=== PATIENT | male | born 1940 | race Caucasian/White ===

== ENCOUNTER 2017-04-29 19:09 | Inpatient (IN) ==
[2017-04-29] MEDS ORDERED: LOVENOX SUBQ SCH (19:42)
[2017-04-29] MEDS ORDERED: ASPIRIN PO STA (19:42)
[2017-04-29] MEDS ORDERED: TYLENOL PO PRN (19:42)
[2017-04-29 20:44] LABS: MANUAL DIFF NEEDED? NO
[2017-04-29 20:48] LABS: BASO% 0.4 % (0.0-0.8); EOS# 0.05 X1000 (0.0-0.7); EOS% 0.6 % (0.0-10.0); HEMATOCRIT 42.5 % (42.0-52.0); HEMOGLOBIN 14.1 g/dL (14.0-18.0); LYMPH# 1.71 X1000 (1.2-3.4); LYMPH% 21.2 % (20.5-51.1); MCH 29.5 PG (27-31); MCHC 33.2 g/dL (33-37); MCV 88.9 FL (81-99); MONO# 1.01 X1000 (0.11-0.59); MONO% 12.5 % (1.7-9.3); MPV 9.3 FL (7.4-10.4); NEUT% 65.3 % (42.2-75.2); PLT 243 X1000 (130-400); RBC 4.78 XMIL (4.7-6.1)
[2017-04-29 20:56] LABS: INR 1.06; PROTIME 11.2 Seconds (9.2-11.7); PTT 28.5 Seconds (22.0-36.0)
[2017-04-29 21:02] LABS: CALCIUM 9.3 mg/dL (8.8-10.2); TOTAL BILIRUBIN 0.53 mg/dL (0.20-1.00); TOTAL PROTEIN 6.8 g/dL (6.3-8.3)
[2017-04-29] MEDS ORDERED: CLARITIN PO PRN (21:21)
[2017-04-29] MEDS ORDERED: MUCINEX DM PO PRN (21:25)
[2017-04-29] MEDS ORDERED: PLENDIL PO SCH (21:30)
[2017-04-29] MEDS: NITROGLYCERIN TOP SCH (21:35)
[2017-04-29] MEDS ORDERED: LOVENOX ONE ×2 (22:04)
[2017-04-29] MEDS: LOPRESSOR PO SCH (22:11)
--- NOTE | 2017-04-29 23:10 | HISTORY AND PHYSICAL ---
PRIMARY CARE PHYSICIAN: Dr. Carlos Mcmanus. CHIEF COMPLAINT: Chest pain. HISTORY OF PRESENT ILLNESS: A 76-year-old white male with a very complicated past medical history presents for evaluation of above-mentioned symptoms. Current history of present illness began at approximately 5 a.m. this morning. Patient states he awoke abruptly with shortness of breath. The patient states he immediately withdrew his CPAP. He then noted significant bilateral shoulder pain and anterior chest pain. He described the pain as a soreness. The patient attempted to lie back down but again developed considerable pain. He arose and prepared himself for the morning taking his grandchildren to school. Upon returning home, he again developed pain with lying supine. Because of his persistent pain as well as his multiple medical problems, his insisted that he come to the office. Upon arrival, patient states he had persisted pain approximately 2/10 in intensity. His EKG demonstrated a slight change in the ST segments in the inferior leads. Because of the slight change and his significant risk factors, patient will be admitted to the hospital for full evaluation and management of chest discomfort. Unfortunately, patient is largely inactive during the day. He denies significant shortness of breath or dyspnea on exertion but patient's notes his activity level is quite low. He denies palpitations, radiating pain, nausea, vomiting or change in lower extremity edema. PAST MEDICAL HISTORY: 1. Allergic rhinitis. 2. Anxiety/depression. 3. Chronic obstructive pulmonary disease. 4. Metabolic syndrome. 5. Benign prostatic hypertrophy. 6. Hypertriglyceridemia. 7. Nonalcoholic fatty liver disease. 8. Gout. 9. Bilateral hearing loss. 10. Abnormal skin examination with a history of melanoma x3. 11. Hyperlipidemia. 12. Hypertension. 13. Hypokalemia. 14. Impaired fasting glucose. 15. Low HDL. 16. History of adenocarcinoma of the right lower lobe of the lung. 17. Nephrolithiasis. 18. Osteoarthritis. 19. Obesity. 20. History of a duodenal ulcer in 1982 and 2008. 21. Hypogonadism. 22. Family history of ischemic heart disease. 23. Elevated PSA with negative prostate biopsy in 2008. 24. 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 25. History of thyroid cancer status post surgical resection and subsequent radioactive iodine ablation. CURRENT MEDICATIONS: 1. Allopurinol 200 mg daily. 2. Aspirin 81 mg daily. 3. Wellbutrin XL 300 mg daily. 4. Claritin 10 mg daily as needed. 5. Crestor 40 mg at bedtime. 6. Dulera 200/5 two puffs twice daily. 7. Lexapro 20 mg daily. 8. Felodipine 5 mg at bedtime. 9. Finasteride 5 mg daily. 10. Potassium chloride 10 mEq 3 times daily. 11. Levothyroxine 137 mcg 2 tablets daily. 12. Meloxicam 15 mg daily as needed. 13. Metoprolol tartrate 25 mg twice daily. 14. Mucinex DM 1 tablet every 12 hours as needed. 15. Niacin ER 500 mg daily. 16. Triamterene/hydrochlorothiazide 37.5/25 two tablets daily. 17. Valsartan 160 mg daily. ALLERGIES: patient answered no known drug allergies. SOCIAL HISTORY: Patient is a former smoker having smoked 2 packs per day for 30 years. He stopped in 2000. He has approximately 2 drinks per week. He denies illicit drug use. 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 He enjoys gardening and reading. He exercises intermittently. FAMILY HISTORY: Patient's father passed at age 46 secondary to complications of a cerebral hemorrhage. Patient's mother passed at age 68 secondary to complications of an acute myocardial infarction. REVIEW OF SYSTEMS: A 12 point review of systems was performed. Pertinent positives and negatives noted in history present illness. PHYSICAL EXAMINATION: VITAL SIGNS: Temperature 98.4 degrees, heart rate 69, respirations 16, blood pressure is 127/77. GENERAL: Well nourished, well developed, no acute distress. HEENT: Normocephalic, atraumatic. Pupils equal, round, react to light. Extraocular muscles intact. Sclerae anicteric. [place] conjunctivae. Oral and nasopharynx clear without exudate. NECK: Supple. No lymphadenopathy. No thyromegaly. No bruits auscultated. CARDIOVASCULAR: Regular rate and rhythm. No significant murmurs, rubs, or gallops. PULMONARY: Clear to auscultation bilaterally. ABDOMEN: Soft and nontender, nondistended. Positive bowel sounds. EXTREMITIES: Moves all extremities well. No significant clubbing or cyanosis. Patient has 1+ lower extremity edema bilaterally. NEUROLOGIC: Cranial nerves 2 through 12 grossly intact. Motor and sensory grossly intact. PSYCHOLOGIC: Examination is appropriate. LABORATORY DATA: White blood cell count 8.08, hemoglobin 14.1, hematocrit 42.5, platelet count 243,000. PT 11.2, INR is 1.06, PTT is 28.5, sodium 137, potassium 4.0, chloride 100, bicarb 25, BUN 22, creatinine 1.2, glucose 111, calcium 9.3, total bilirubin 0.53, total protein 6.8, albumin 4.0, alkaline phosphatase 55, AST 19, ALT 23, CK total 59, troponin less than 0.010. TSH is 0.05. ASSESSMENT AND PLAN: A 76-year-old white male with a very complicated past medical history as noted presents for evaluation of chest discomfort. His symptoms are atypical. Unfortunately however, with the patient's significant risk factors I am very concerned. EKG demonstrates a modest change in his ST segments in the inferior leads, possibly related to repolarization. Patient will be admitted to the hospital for full evaluation and management of chest discomfort. 1. Admit to General Medicine. 2. Chest pain/unstable angina-as above, patient's symptoms are atypical but very concerning in a high-risk patient. We will monitor patient on telemetry overnight. We will schedule an echocardiogram in the morning. We will follow serial cardiac enzymes. Will start an aspirin. We will continue metoprolol therapy. I have discussed case with Dr. Flynn. He will be consulted in the a.m. We will determine if left heart catheterization versus stress testing is appropriate in the morning. 3. Hypertension-patient has longstanding disease. We will continue his home regimen. 4. Anxiety/depression-we will continue patient on his home medications. 5. Hyperlipidemia-we will continue Crestor therapy. 6. Low HDL-we will remain aware. This is an additional risk factor for underlying heart disease. 7. History of adenocarcinoma of the lung and thyroid cancer-we will remain aware. 8. Fluid, electrolytes, nutrition. Will monitor electrolytes. Saline lock IV. Cardiac prudent diet. 9. Prophylaxis. Patient will be placed on subcu Lovenox. cc: Carlos Mcmanus MD
[2017-04-30] MEDS: NITROGLYCERIN TOP SCH ×3 (03:01→16:14)
--- NOTE | 2017-04-30 06:52 | EKG Report ---
Test Performed on : 04/30/2017 06:33:48 AM Test Reason : Chest pain Blood Pressure : / mmHG Vent. Rate : 059 BPM Atrial Rate : 059 BPM P-R Int : 278 ms QRS Dur : 108 ms QT Int : 464 ms P-R-T Axes : 115 -17 068 degrees QTc Int : 459 ms Sinus bradycardia. with 1st degree AV block. Otherwise normal ECG When compared with ECG of 23-JUL-2011 11:15, QRS axis change inferior III and AVF ST less depressed in aVL Clinical Correlation advised Confirmed by Kevin Flynn DO ([id number]) on 04/30/2017 6:18:12 PM
[2017-04-30] MEDS ORDERED: SYNTHROID PO SCH (07:00)
[2017-04-30] MEDS ORDERED: DULERA 200 MCG/5 MCG INHALER INH SCH (07:30)
--- NOTE | 2017-04-30 08:37 | CONSULTATION ---
DATE OF CONSULTATION: 04/30/2017 INDICATIONS: Chest pain. HISTORY OF PRESENT ILLNESS: Mr. Melendez is a 76-year-old white male with a history of hypertension, hyperlipidemia, and COPD. He presented to Dr. Mcmanus' office yesterday with complaints of chest discomfort. They apparently woke him from sleep around 5 a.m. This was a relatively abrupt pain that he described as a soreness type discomfort in the upper chest and radiating to his bilateral shoulders. This persisted quite a bit throughout the day yesterday, such that any sort of activity like walking around or lying back aggravated the discomfort. If he laid relatively still there was minimal pain but it seemed like the pain was persistent throughout the day. He denied any nausea, vomiting, or shortness of breath associated with this and did not have any diaphoresis. He has no known cardiac history up until this point. He had myocardial perfusion imaging performed a couple of years ago which appeared to be a low risk study at that time. PAST MEDICAL HISTORY: 1. Significant for COPD with a previous long history of tobacco use. 2. History of lung cancer status post resection of the right lower lobe. 3. Metabolic syndrome. 4. BPH. 5. Hyperlipidemia. 6. Nonalcoholic fatty liver disease. 7. Gout. 8. Hypertension. 9. Nephrolithiasis. 10. Osteoarthritis. 11. Previous history of duodenal ulcers in 1982 and 2008. 12. History of thyroid cancer status post surgical resection along with subsequent radioactive iodine treatment. SOCIAL HISTORY: Former smoker; he stopped in 2000. Up until that point he smoked around 2 packs for 30 years. A couple of alcoholic drinks per week. No illicit drugs. FAMILY HISTORY: Father had an intracerebral hemorrhage. Mother at 68 secondary to complications related to an [place]. REVIEW OF SYSTEMS: A 10 system review of systems is negative except for those things mentioned in HPI. PHYSICAL EXAMINATION: Vital signs: Afebrile. Heart rates in the 50s to 60s. Blood pressure 106/69. General: No acute distress. HEENT: Oropharynx is moist. Normal dentition. Eye examination shows pink conjunctivae. White sclerae. Neck: Examination shows no obvious thyromegaly or thyroid tenderness. Cardiovascular: He is in a regular rate and rhythm. He has no murmurs. He has no S3. He has no lower extremity edema. No carotid bruits. Chest: Exam sounds relatively clear to auscultation bilaterally. He has no increased work of breathing. Abdomen: Soft, nontender, nondistended. No obvious organomegaly. Skin Exam: Warm and dry throughout without any rashes. Neurological: Moving all extremities well. Cranial nerves 2 through 12 are intact without any sensation deficits. Psychiatric: Alert, oriented, pleasant. Normal mood and affect. PERTINENT DATA: His EKG shows sinus bradycardia with a first-degree AV block. No ischemic changes. No evidence of acute infarct. He had a chest x-ray performed which shows evidence for cardiomegaly but otherwise unremarkable. His most recent laboratory data shows a white count of 8, hematocrit 42, platelet count 243,000. INR 1.0. Sodium 137, potassium 4, BUN 22, creatinine 1.2. Cardiac enzymes including CK and troponin were negative. TSH was low at 0.05. Liver enzymes were unremarkable. ASSESSMENT: 1. Patient with chest discomfort concerning for possible angina, although there are some atypical features. 2. Multiple risk factors for coronary disease. PLAN: We will proceed with cardiac catheterization. Risks, benefits, and alternatives explained to the patient. He agrees to proceed. He did have a myocardial perfusion scan performed in 2014 that demonstrated a defect in the inferior base that appeared to be relatively low risk with a normal EF. I agree with the echocardiogram the patient has ordered for today. He is already on aspirin and high-intensity statin therapy. We will assess his coronary anatomy via cardiac catheterization today. cc: MD Carlos Canas MD
[2017-04-30] MEDS ORDERED: LEXAPRO PO SCH (09:00)
[2017-04-30] MEDS ORDERED: PROSCAR PO SCH (09:00)
[2017-04-30] MEDS ORDERED: MAXZIDE 75/50 PO SCH (09:00)
[2017-04-30] MEDS ORDERED: DIOVAN PO SCH (09:00)
[2017-04-30] MEDS ORDERED: ZYLOPRIM PO SCH (09:00)
[2017-04-30] MEDS ORDERED: WELLBUTRIN XL PO SCH (09:00)
[2017-04-30] MEDS ORDERED: ASPIRIN PO SCH (09:00)
[2017-04-30] MEDS: KLOR-CON PO SCH ×3 (10:09→17:35)
[2017-04-30] MEDS: LOPRESSOR PO SCH (10:09)
[2017-04-30] MEDS ORDERED: HEPARIN 1000 UNITS/NS 2,000 UNIT/1,000 ML IV.SOLN ONE (13:09)
[2017-04-30] MEDS ORDERED: VERSED ONE (13:37)
[2017-04-30] MEDS ORDERED: CLAVE PUMP SET NO FILTER 12260 ONE (13:38)
[2017-04-30] MEDS ORDERED: DILAUDID ONE (13:38)
[2017-04-30] MEDS ORDERED: NS 1,000 ML ONE (13:38)
[2017-04-30] MEDS ORDERED: CLAVE TWINSITE 32 IN 11959 ONE (13:38)
--- NOTE | 2017-04-30 14:51 | CARDIAC CATH REPORT ---
PROCEDURE NAME: - INDICATION: Unstable angina. PROCEDURES PERFORMED: 1. Left heart catheterization. 2. Selective coronary angiography. 3. Left ventriculogram. PROCEDURE IN DETAIL: Mr. Melendez was brought to the catheterization laboratory in fasting state. Informed consent was obtained. Prepped in usual fashion. He was anesthetized over the right radial artery after Wei's test proved adequate. A 5-Romanian sheath was placed via true Seldinger technique. Radial cocktail was administered. Catheters were introduced. Hemodynamic measurements made of the ascending thoracic aorta. Coronary angiography was performed with multiple views using JL3.5 and JR4 diagnostic catheters. Left heart catheterization and left ventriculogram were performed using the JR4. At the conclusion of the procedure, all sheaths and catheters removed. TR band was left inflated at 12 mL of air. Good capillary refill. Good hemostasis. No apparent complications, 70 mL of IV contrast, 5 to 10 mL of blood loss. FINDINGS: 1. The left main has minor luminal irregularities noted. 2. Left anterior descending originates from the left main. The proximal vessel has roughly 40% diffuse disease. Mid-vessel, as well, has 40% disease with a distal vessel with minimal luminal irregularities. 3. Circumflex originates from the left main. There is somewhat minor luminal irregularities noted throughout the circumflex proper, as well as a very large obtuse marginal branch. 4. Right coronary originates from the right coronary cusp. It is a small nondominant vessel that bifurcates very quickly into 2 much smaller vessels, with minor luminal irregularities scattered throughout. 5. Left ventriculogram demonstrates an EF 60%, with normal wall motion. 6. Aortic blood pressure is 131/66. Left ventricle pressure is 130/3, with an LVEDP of 12. ASSESSMENT: Mr. Melendez is a 76-year-old male, with multiple risk factors for coronary disease, presenting with chest pain symptoms concerning for possible unstable angina. PLAN: He has no flow-limiting coronary lesions. He may return to the [facility] for usual post- procedure convalescence. He needs secondary risk factor modification for his nonobstructive coronary disease. I will plan on seeing him in the office in 1 month. cc: MD Carlos Canas MD
--- NOTE | 2017-04-30 15:58 | ECHO REPORT ---
ORDER DATE: 04/30/2017 INDICATION: Chest pain. FINDINGS: 1. Right atrium appears normal in size. 2. Mild tricuspid regurgitation. RV systolic pressure of 30. 3. Normal RV size and systolic function. 4. No significant pulmonic insufficiency. 5. Mild left atrial enlargement of 4.1 cm. 6. No mitral prolapse. Trace mitral regurgitation. 7. Normal LV size, end-diastolic dimension of 5 cm. Moderate left ventricular hypertrophy with a posterior and interventricular septal wall thickness of 1.5 and 1.4 cm respectively. Normal LV systolic function. Calculated EF of 62% with normal wall motion. 8. Aortic valve opens well. No evidence of stenosis. Mild insufficiency. 9. Aorta appears normal in visualized segments. 10. No pericardial effusion seen. cc: MD Carlos Canas MD
[2017-04-30 19:42] VITALS: BP 117/90
--- NOTE | 2017-04-30 20:14 | DISCHARGE SUMMARY ---
ADMISSION DATE: 04/29/2017 DISCHARGE DATE: 04/30/2017 ADMISSION DIAGNOSIS: Chest pain. DISCHARGE DIAGNOSES: 1. Chest pain, noncardiac. 2. Hypertension, present on arrival. 3. Depression/anxiety, present on arrival. 4. Hyperlipidemia, present on arrival. 5. Low HDL, present on arrival. CONSULTATIONS: Dru Flynn MD with Cardiology was consulted for further evaluation and management of chest discomfort. PROCEDURES: 1. An echocardiogram was performed on 04/30/2017 which revealed right atrium appears normal in size. Mild tricuspid regurgitation. RV systolic pressure of 30. Normal RV size and systolic function. No significant pulmonic insufficiency. Mild left atrial enlargement of 4.1 cm. No mitral prolapse. Trace mitral regurgitation. Normal LV size, end-diastolic dimension of 5 cm. Moderate left ventricular hypertrophy with a posterior and interventricular septal wall thickness of 1.5 and 1.4 cm respectively. Normal LV systolic function. Calculated ejection fraction of 62% with normal wall motion. Aortic valve opens well. No evidence of stenosis. Mild insufficiency. The aorta appears normal on visualized segments. No pericardial effusion seen. 2. Left heart catheterization was performed on 04/30/2017 which revealed left main has minor luminal irregularities. Left anterior descending originates from the left main. The proximal vessel has roughly 40% diffuse disease. Mid vessel as well has 40% disease with a distal vessel with minimal luminal irregularities. Circumflex originates from the left main. There is some moderate luminal irregularities noted throughout the circumflex proper, as well as a large obtuse marginal branch. Right coronary artery originates from the right coronary cusp. There is a small nondominant vessel that bifurcates very quickly into 2 much smaller vessels, with minor luminal irregularities scattered throughout. Left ventriculogram demonstrates an ejection fraction of 60% with normal wall motion. HISTORY AND PHYSICAL EXAMINATION: See admit note. PHYSICAL EXAMINATION PRIOR TO DISCHARGE: Vital Signs: Temperature 98.7 degrees, heart rate 58, respirations 16, blood pressure is 134/84. General: Well-nourished, well-developed, in no acute distress. Cardiovascular: Regular rate and rhythm. No significant murmurs, rubs, or gallops. Pulmonary: Clear to auscultation bilaterally. Abdomen: Soft, nontender, nondistended. Positive bowel sounds. Extremities: Moves all extremities well. No significant clubbing or cyanosis. Patient has 1+ lower extremity edema bilaterally. Dermatologic Evaluation: Reveals no evidence of rash. LABORATORY DATA PRIOR TO DISCHARGE: None. HOSPITAL COURSE: Patient was admitted as per history and physical examination. Hospital course per condition is as follows: 1. Chest pain/unstable angina - Upon admission, patient was noted to have chest pain. Because of his multiple risk factors, aggressive intervention was felt most warranted. Dr. Flynn was consulted. An echocardiogram and left heart catheterization were performed as described above. With these findings, it suggested the chest discomfort was likely noncardiac. We will continue the patient on his optimum medical management. We will treat patient for possible musculoskeletal etiologies. 2. Hypertension - Patient was maintained on his home medications while hospitalized. We will continue this as an outpatient. 3. Hyperlipidemia - We will continue patient on Crestor therapy. Cholesterol is controlled. 4. Low HDL - We will encourage diet and exercise. We will continue optimum LDL control. 5. Adenocarcinoma of the lung/thyroid cancer - We will remain aware. DISCHARGE CONDITION: Good. DISPOSITION: Discharge to home. MEDICATIONS: 1. Acetaminophen 650 mg every 4 hours as needed. 2. Allopurinol 200 mg daily. 3. Aspirin 81 mg daily. 4. Bupropion XL 300 mg daily. 5. Lexapro 20 mg daily. 6. Felodipine 5 mg at bedtime. 7. Finasteride 5 mg daily. 8. Mucinex DM 1 tablet twice daily as needed. 9. Levothyroxine 112 mcg, 2 tablets daily. 10. Loratadine 10 mg daily as needed. 11. Metoprolol 25 mg twice daily. 12. Mometasone/formoterol (Dulera) 200/5, 2 puffs twice daily. 13. Potassium chloride 10 mEq 3 times a day. 14. Crestor 40 mg at bedtime. 15. Triamterene/hydrochlorothiazide 75/50 daily. 16. Valsartan 160 mg daily. FOLLOWUP: The patient is to follow up with me in approximately 1-2 weeks. cc: Carlos Mcmanus MD
[2017-04-30] MEDS ORDERED: CRESTOR PO SCH (21:00)
--- NOTE | 2017-05-03 11:09 | Diag Imaging Result Doc PS360 ---
EXAM: CHEST-PORTABLE HISTORY: Chest pain TECHNIQUE: AP portable upright at 2006 COMMENT: The heart size is the upper limits of normal. There are calcified nodes in the left hilum. Compared to 03/22/2016 there is been no significant change in the appearance of the chest. IMPRESSION: No acute disease. Cardiomegaly. Electronically signed by Sudhakar Herrera 05/03/2017 11:07 AM
== END 2017-04-30 20:19 | disposition home or self-care (01) ==
LOC: DIRADM 19:09 → 3N 19:19 → 3S 04-30 14:47
PROVIDERS: ADMIT Internal Medicine; ATTEND Internal Medicine